=== PATIENT | female | born 1995 | race Caucasian/White ===

== ENCOUNTER 2023-02-08 17:30 | Inpatient (IN) | payer OTHER ==
[2023-02-08] MEDS ORDERED: DEXTROSE 5%-LACTATED RINGERS 1,000 ML IV SCH ×2 (18:45→19:00)
[2023-02-08] MEDS ORDERED: DEXTROSE 5%-LACTATED RINGERS 1,000 ML IV ONE (18:51)
[2023-02-08 19:08] VITALS: BMI 35.1
[2023-02-08 19:34] LABS: BASO % 0.2 % (0-2.0); EOS % 0.4 % (0-4.5); HEMATOCRIT 36.6 % (32.4-45.2); HEMOGLOBIN 12.2 GM/dL (10.7-15.3); LYMPH % 17.4 % (8-40); MCH 26.5 pg (25.7-33.7); MCHC 33.4 g/dl (32.0-36.0); MEAN CELL VOLUME 79.4 fl (80-96); MEAN PLT VOLUME 8.7 fl (7.5-11.1); MONO % 3.6 % (3.8-10.2); NEUT % 78.4 % (42.8-82.8); PLATELET COUNT 229 10^3/uL (134-434); RBC 4.61 M/mm3 (3.60-5.2); RDW 17.2 % (11.6-15.6); WHITE BLOOD COUNT 9.3 K/mm3 (4.0-10.0)
[2023-02-08 19:42] LABS: INR 0.94 (0.83-1.09); PROTHROMBIN TIME (PATIENT) 10.9 SEC (9.7-13.0)
[2023-02-08 19:44] LABS: ACTIVATED PTT 26.9 SECONDS (25.2-36.5)
[2023-02-08 20:03] LABS: BLOOD UREA NITROGEN 5.7 mg/dL (7-18)
[2023-02-08 20:06] LABS: CREATININE 0.7 mg/dL (0.55-1.3)
[2023-02-08] MEDS ORDERED: PROMETHAZINE HCL 25 MG/1 ML VIAL IVPB ONE (20:37)
[2023-02-08] MEDS ORDERED: BUTORPHANOL TARTRATE 2 MG/ML VIAL IVPB ONE (20:37)
[2023-02-08] MEDS ORDERED: BUTORPHANOL TARTRATE 2 MG/ML VIAL ONE (20:38)
[2023-02-08] MEDS ORDERED: PROMETHAZINE HCL 25 MG/1 ML VIAL ONE (20:38)
[2023-02-09] MEDS ORDERED: FENTANYL/BUPIVACAINE/NS/PF - PCEA - 50 ML DISP.SYRIN EP ONE ×3 (05:01→12:42)
[2023-02-09] MEDS ORDERED: NALOXONE HCL 0.4 MG/ML VIAL IVPUSH PRN (05:01)
[2023-02-09] MEDS ORDERED: FENTANYL CITRATE/PF 50 MCG/ML VIAL ONE (05:03)
[2023-02-09] MEDS ORDERED: BUPIVACAINE HCL/PF 0.25% (2.5MG/ML) 10 ML VIAL ONE (05:03)
[2023-02-09] MEDS: FENTANYL/BUPIVACAINE/NS/PF - PCEA - 50 ML DISP.SYRIN EP SCH ×3 (05:20→13:40)
[2023-02-09] MEDS ORDERED: OXYTOCIN 30 UNITS in 0.9% NS 30 UNIT/500 ML INFUS.BAG IVPB SCH (08:30)
[2023-02-09] MEDS ORDERED: OXYTOCIN 20 UNITS in 0.9% NS 20 UNIT/1,000 ML INFUS.BAG IV ONE (16:40)
[2023-02-09] MEDS ORDERED: BENZOCAINE 20% 57 GM BOTTLE TP PRN (17:48)
[2023-02-09] MEDS ORDERED: ACETAMINOPHEN 325 MG TABLET (FP) PO PRN (17:48)
[2023-02-09] MEDS ORDERED: BENZOCAINE 28 GM HEMORRHOIDAL OINTMENT TP PRN (17:48)
[2023-02-09] MEDS ORDERED: METHYLERGONOVINE MALEATE 0.2 MG/1 ML AMP IM PRN (17:48)
[2023-02-09] MEDS ORDERED: WITCH HAZEL 50% (TUCKS) 40 PAD/JAR PAD TP PRN (17:48)
[2023-02-09] MEDS ORDERED: BISACODYL 10 MG SUPP.RECT RC PRN (17:48)
[2023-02-09] MEDS ORDERED: OXYTOCIN 20 UNITS in 0.9% NS 20 UNIT/1,000 ML INFUS.BAG IV SCH (18:00)
[2023-02-09 20:05] VITALS: RESP 18
[2023-02-09] MEDS: IBUPROFEN 600 MG TABLET (FP) PO PRN (21:23)
[2023-02-10] MEDS: IBUPROFEN 600 MG TABLET (FP) PO PRN ×2 (02:08→08:59)
[2023-02-10 07:52] LABS: BASO % 0.2 % (0-2.0); EOS % 1.1 % (0-4.5); HEMATOCRIT 28.5 % (32.4-45.2); HEMOGLOBIN 9.7 GM/dL (10.7-15.3); LYMPH % 18.4 % (8-40); MCH 27.2 pg (25.7-33.7); MCHC 33.9 g/dl (32.0-36.0); MEAN PLT VOLUME 9.1 fl (7.5-11.1); MONO % 5.1 % (3.8-10.2); NEUT % 75.2 % (42.8-82.8); PLATELET COUNT 146 10^3/uL (134-434); RBC 3.57 M/mm3 (3.60-5.2); RDW 17.5 % (11.6-15.6); WHITE BLOOD COUNT 13.8 K/mm3 (4.0-10.0)
[2023-02-10] MEDS: PRENATAL VITAMINS W/ FOLIC ACID TABLET (FP) PO SCH (08:59)
[2023-02-10 11:01] LABS: POC NITRAZINE POS
[2023-02-10] MEDS: FENTANYL/BUPIVACAINE/NS/PF - PCEA - 50 ML DISP.SYRIN EP SCH (19:07)
[2023-02-10] MEDS ORDERED: SENNOSIDES/DOCUSATE COMBO (SENNA PLUS) TABLET (UD) PO PRN (22:00)
[2023-02-11 00:04] VITALS: PULSE 70
[2023-02-11] MEDS: IBUPROFEN 600 MG TABLET (FP) PO PRN (09:22)
[2023-02-11] MEDS: PRENATAL VITAMINS W/ FOLIC ACID TABLET (FP) PO SCH (09:22)
[2023-02-11 09:36] VITALS: BP 110/75; TEMP 98
== END 2023-02-11 12:05 | disposition home or self-care (01) | DRG 560 ==
LOC: JDEL 17:30 → JLDR 18:45 → J3W 02-09 20:25
PROVIDERS: ADMIT Obstetrics & Gynecology; ATTEND Obstetrics & Gynecology
PROC: 0HQ9XZZ Repair Perineum Skin, External Approach (ICD-10-PCS; principal; 2023-02-09)
PROC: 10E0XZZ Delivery of Products of Conception, External Approach (ICD-10-PCS; 2023-02-09)
DX: O69.81X0 Labor and delivery complicated by cord around neck, without compression, not applicable or unspecified (principal); O70.0 First degree perineal laceration during delivery; Z3A.38 38 weeks gestation of pregnancy; Z37.0 Single live birth
CPT/HCPCS: 36415; 80048; 83986-QW; 85025; 85610; 85730; 86780; 86850; 86900; 86901; 87635

== ENCOUNTER 2024-10-24 16:10 | Emergency (ER) | payer OTHER ==
[2024-10-24 16:28] VITALS: BP 111/63; PULSE 76; RESP 16; TEMP 98.6; BMI 24.1
== END 2024-10-24 19:07 | disposition home or self-care (01) ==
LOC: JERFT 16:10
DX: O20.0 Threatened abortion (principal); Z3A.00 Weeks of gestation of pregnancy not specified
CPT/HCPCS: 36415; 76817-TC; 84702; 99284-25

== ENCOUNTER 2024-10-27 15:19 | Emergency (ER) | payer OTHER ==
[2024-10-27 15:34] VITALS: BP 99/64; PULSE 80; RESP 17; TEMP 98.2; BMI 24.1
== END 2024-10-27 20:41 | disposition home or self-care (01) ==
LOC: JERFT 15:19 → JER 15:19 → JERFT 20:41
DX: O02.81 Inappropriate change in quantitative human chorionic gonadotropin (hCG) in early pregnancy (principal)
CPT/HCPCS: 36415; 76830-TC; 84702; 99284-25

== ENCOUNTER 2024-11-04 15:43 | Emergency (ER) | payer OTHER ==
[2024-11-04 16:20] VITALS: BP 116/73; PULSE 78; RESP 16; TEMP 98.9; BMI 25.4
[2024-11-04 17:43] LABS: BASO % 0.3 % (0-2.0); EOS % 2.5 % (0-4.5); HEMATOCRIT 39.5 % (32.4-45.2); LYMPH % 35.3 % (8-40); MCH 26.9 pg (25.7-33.7); MCHC 32.9 g/dl (32.0-36.0); MEAN CELL VOLUME 81.7 fl (80-96); MEAN PLT VOLUME 7.8 fl (7.5-11.1); MONO % 5.3 % (3.8-10.2); NEUT % 56.6 % (42.8-82.8); PLATELET COUNT 264 10^3/uL (134-434); RBC 4.84 M/mm3 (3.60-5.2); RDW 14.6 % (11.6-15.6); WHITE BLOOD COUNT 7.5 K/mm3 (4.0-10.0)
[2024-11-04 17:50] LABS: INR 1.06 (0.83-1.09); PROTHROMBIN TIME (PATIENT) 11.5 SEC (9.7-13.0)
[2024-11-04 17:53] LABS: ACTIVATED PTT 29.4 SECONDS (25.2-36.5)
[2024-11-04 18:04] LABS: POTASSIUM 4.5 mmol/L (3.5-5.1)
[2024-11-04 18:07] LABS: ALBUMIN 3.7 g/dl (3.4-5.0); BLOOD UREA NITROGEN 10.9 mg/dL (7-18); CALCIUM 8.8 mg/dL (8.5-10.1)
[2024-11-04 18:10] LABS: CREATININE 0.5 mg/dL (0.55-1.3)
[2024-11-04 18:12] LABS: BILIRUBIN,TOTAL 0.4 mg/dL (0.2-1); TOT PROT 7.6 g/dl (6.4-8.2)
[2024-11-04 19:01] LABS: HIV INTERPRETATION NEGATIVE (NEGATIVE)
[2024-11-04] MEDS ORDERED: METHOTREXATE SODIUM/PF 25 MG/ML VIAL IM ONE (19:23)
[2024-11-04] MEDS: METHOTREXATE SODIUM/PF 25 MG/ML VIAL IM ONE (20:33)
[2024-11-04 20:39] LABS: EPI CELLS 14 /uL (0-25.1); HYALINE CASTS 0 /uL (0-3.1); URINE APPEARANCE CLEAR; URINE BACTERIA 11 /uL (0-1359); URINE BILIRUBIN NEGATIVE (NEGATIVE); URINE COLOR YELLOW; URINE GLUCOSE (UA) NEGATIVE (NEGATIVE); URINE KETONE NEGATIVE (NEGATIVE); URINE LEUK ESTERASE TRACE (NEGATIVE); URINE NITRITE NEGATIVE (NEGATIVE); URINE PROTEIN TRACE (NEGATIVE); URINE RBC 4241 /uL (0-23.9); URINE UROBILINOGEN 0.2 mg/dL (0.2-1.0); URINE WBC 29 /uL (0-25.8)
== END 2024-11-04 22:39 | disposition home or self-care (01) ==
LOC: JER 15:43
PROC: 3E033GC Introduction of Other Therapeutic Substance into Peripheral Vein, Percutaneous Approach (ICD-10-PCS; principal; 2024-11-04)
DX: O20.9 Hemorrhage in early pregnancy, unspecified (principal); Z3A.00 Weeks of gestation of pregnancy not specified
CPT/HCPCS: 36415; 76817-TC; 80053; 81003; 84702; 85025; 85610; 85730; 86803; 86850; 86900; 86901; 87086; 87389; 99285-25; J9260

== ENCOUNTER 2024-12-18 15:24 | Emergency (ER) | payer OTHER ==
[2024-12-18 15:31] VITALS: BP 103/79; PULSE 65; RESP 20; TEMP 98.8; BMI 28.3
[2024-12-18] MEDS ORDERED: DOXYCYCLINE HYCLATE 100 MG CAPSULE PO ONE (17:41)
[2024-12-18] MEDS: DOXYCYCLINE HYCLATE 100 MG CAPSULE PO ONE (17:45)
== END 2024-12-18 18:30 | disposition home or self-care (01) ==
LOC: JERFT 15:24
DX: S30.861A Insect bite (nonvenomous) of abdominal wall, initial encounter (principal); R21 Rash and other nonspecific skin eruption; W57.XXXA Bitten or stung by nonvenomous insect and other nonvenomous arthropods, initial encounter
CPT/HCPCS: 99283-25